=== PATIENT | male | born 1960 | race Caucasian/White ===

== ENCOUNTER 2018-09-21 10:32 | Emergency (ER) | payer OTHER ==
[~2018-09-21] VITALS: Ht 175.3 cm; Wt 86.2 kg
[2018-09-21] MEDS ORDERED: METFORMIN HCL1000 M1 ORAL (10:41)
[2018-09-21] MEDS ORDERED: Vancomycin 1 GM in NS 275 ML IV ONE (11:00)
[2018-09-21] MEDS ORDERED: EMLA 5gm tube TOPIC ONE ×2 (11:00)
[2018-09-21] MEDS ORDERED: Lidocaine 1% Plain 30 ml INJ ONE (11:00)
--- NOTE | 2018-09-21 11:03 | Emergency Room Report ---
History of Present Illness General Chief Complaint: Skin Rash/Abscess Source: Patient Present Illness HPI This patient states that he was traveling from the [facility] about one week ago. He states the day after he arrived here in [place] he felt pain in his posterior left thigh. He states that he eventually identified that there was a large "pimple." He states that over the past week he has tried warm compresses but the area is enlarging and becoming more painful. He denies fever or chills. He denies nausea or vomiting. He states that the area is very tender. He has had some other lesions in the past, but not this large. He has no other complaints. Allergies: Coded Allergies: No Known Allergies (Unverified , 09/21/18) Patient History Past Medical History: see triage record, DM, GERD Social History: Denies: smoking, alcohol use, drug use Reviewed Nursing Documentation: PMH: Agreed; PSxH: Agreed Nursing Documentation-PMH Past Medical History: No History, Except For Hx Diabetes: Yes Hx Gastrointestinal Problems: Yes - GERD Review of Systems All Other Systems: negative except mentioned in HPI Physical Exam Vital Signs Date Time Temp Pulse Resp B/P (MAP) Pulse Ox O2 Delivery O2 Flow Rate FiO2 09/21/18 10:38 98.2 78 18 125/78 97 Room Air Sp02 EP Interpretation: reviewed, normal General Appearance: no apparent distress, alert, GCS 15, non-toxic Head: normocephalic, atraumatic Eyes: bilateral eye normal inspection, bilateral eye PERRL ENT: hearing grossly normal, normal pharynx, no angioedema, normal voice Neck: full range of motion, supple/symm/no masses Respiratory: chest non-tender, lungs clear, normal breath sounds, no respiratory distress, no retraction, no accessory muscle use, speaking full sentences Cardiovascular #1: regular rate, rhythm, no edema Gastrointestinal: normal bowel sounds, non tender, soft, non-distended, no guarding, no rebound Rectal: deferred Musculoskeletal: back normal, gait/station normal, normal range of motion, non- tender Neurologic: alert, oriented x3, responsive, motor strength/tone normal, sensory intact, speech normal Psychiatric: judgement/insight normal, memory normal, mood/affect normal, no suicidal/homicidal ideation Skin: warm/dry, well hydrated, other - L. Posterior and medial thigh just distal to the gluteal crease: [id number] area of erythema and induration with peripherally surrounding erythema. exquisitely TTP. Procedures Incision and Drainage Incision and Drainage : Consent: Verbal Site: L. Posterior thigh Blade Size: 11 I & D Procedure: betadine prep, sterile drapes applied, gauze wick placed Wound Location: lower extremity Wound's Depth, Shape: superficial Wound Length (cm): 2 Irrigated w/ Saline (ccs): 100 Anesthesia: 1% Lidocaine Volume Anesthetic (ccs): 7 Patient Tolerated: Well Complications: None Medical Decision Making Diagnostic Impression: Primary Impression: Cellulitis Additional Impression: Abscess ER Course This patient has an abscess with surrounding cellulitis. I did do an incision and drainage. See my procedure note. I was able to open the abscess and did express purulent discharge. Overall, the patient is nontoxic without systemic symptoms or fever. I did educate the patient on the signs and symptoms of systemic infection. He was given a dose of IV vancomycin and I'll place the patient on doxycycline to cover for MRSA. The patient is also instructed to obtain Hibiclens from the local pharmacy and use this with showers. The patient is given close return precautions and follow-up instructions. Laboratory Tests Test 09/21/18 11:00 White Blood Count 11.1 K/UL (4.8-10.8) H Red Blood Count 5.12 M/UL (4.70-6.10) Hemoglobin 14.9 G/DL (14.2-18.0) Hematocrit 44.0 % (42.0-52.0) Mean Corpuscular Volume 86 FL (80-99) Mean Corpuscular Hemoglobin 29.1 PG (27.0-31.0) Mean Corpuscular Hemoglobin Concent 33.9 G/DL (32.0-36.0) Red Cell Distribution Width 12.4 % (11.6-14.8) Platelet Count 292 K/UL (150-450) Mean Platelet Volume 6.0 FL (6.5-10.1) L Neutrophils (%) (Auto) 70.7 % (45.0-75.0) Lymphocytes (%) (Auto) 19.3 % (20.0-45.0) L Monocytes (%) (Auto) 7.3 % (1.0-10.0) Eosinophils (%) (Auto) 1.9 % (0.0-3.0) Basophils (%) (Auto) 0.8 % (0.0-2.0) Sodium Level 140 MMOL/L (136-145) Potassium Level 4.4 MMOL/L (3.5-5.1) Chloride Level 103 MMOL/L (98-107) Carbon Dioxide Level 28 MMOL/L (21-32) Anion Gap 9 mmol/L (5-15) Blood Urea Nitrogen 28 mg/dL (7-18) H Creatinine 1.0 MG/DL (0.55-1.30) Estimate Glomerular Filtration Rate > 60 mL/min (>60) Glucose Level 132 MG/DL (74-106) H Lactic Acid Level 1.80 mmol/L (0.4-2.0) Calcium Level 9.4 MG/DL (8.5-10.1) Total Bilirubin 0.3 MG/DL (0.2-1.0) Aspartate Amino Transferase (AST) 15 U/L (15-37) Alanine Aminotransferase (ALT) 21 U/L (12-78) Alkaline Phosphatase 69 U/L (46-116) Total Protein 8.4 G/DL (6.4-8.2) H Albumin 4.3 G/DL (3.4-5.0) Globulin 4.1 g/dL Albumin/Globulin Ratio 1.0 (1.0-2.7) Last Vital Signs Date Time Temp Pulse Resp B/P (MAP) Pulse Ox O2 Delivery O2 Flow Rate FiO2 09/21/18 10:38 98.2 78 18 125/78 97 Room Air Status: improved Disposition: HOME, SELF-CARE Condition: Improved Patient Instructions: Calli Lgiht DO Sep 21, 2018 11:03
[2018-09-21 11:27] VITALS: BP 125/78
--- NOTE | 2018-09-21 11:28 | NUR ---
ED Nurse Note:pt. came with left thigh abscess for 1 week, topical lidocane was applied and IV meds and fluids given, blood and cultures sent to labs, pt. c/o pain MD notified
[2018-09-21 11:33] LABS: BASOPHILS % (AUTO) 0.8 % (0.0-2.0); EOSINOPHILS % (AUTO) 1.9 % (0.0-3.0); HEMOGLOBIN 14.9 G/DL (14.2-18.0); LYMPHOCYTES % (AUTO) 19.3 % (20.0-45.0); MEAN CORPUSCULAR VOLUME 86 FL (80-99); MONOCYTES % (AUTO) 7.3 % (1.0-10.0); NEUTROPHILS % (AUTO) 70.7 % (45.0-75.0); PLATELET COUNT 292 K/UL (150-450); RED BLOOD COUNT 5.12 M/UL (4.70-6.10); RED CELL DISTRIBUTION WIDTH 12.4 % (11.6-14.8); WHITE BLOOD COUNT 11.1 K/UL (4.8-10.8)
[2018-09-21 11:41] LABS: ANION GAP 9 mmol/L (5-15); BLOOD UREA NITROGEN 28 mg/dL (7-18); CALCIUM 9.4 MG/DL (8.5-10.1); CARBON DIOXIDE 28 MMOL/L (21-32); CHLORIDE 103 MMOL/L (98-107); POTASSIUM 4.4 MMOL/L (3.5-5.1); SODIUM 140 MMOL/L (136-145)
[2018-09-21 11:44] LABS: ALANINE AMINOTRANSFERASE 21 U/L (12-78); ALBUMIN 4.3 G/DL (3.4-5.0); ALKALINE PHOSPHATASE 69 U/L (46-116); ASPARTATE AMINO TRANSFERASE 15 U/L (15-37); BILIRUBIN,TOTAL 0.3 MG/DL (0.2-1.0)
--- NOTE | 2018-09-21 12:23 | NUR ---
ED Nurse Note:I&D procedure was done by ER MD and then dry dressing applied
[2018-09-21] MEDS ORDERED: DOXYCYCLINE MO100 MG ORAL (12:25)
[2018-09-21] MEDS ORDERED: ACETAMINOPHEN-1 EAC1 ORAL (12:25)
[2018-09-21] MEDS ORDERED: IBUPROFEN800 MG ORAL (12:25)
[2018-09-21 12:51] VITALS: BP 128/76
[2018-09-21 12:52] VITALS: BP 125/78
--- NOTE | 2018-09-21 12:57 | NUR ---
ER DISCHARGE NOTE: Patient is cleared to be discharged per ERMD, pt is aox4, on room air, with stable vital signs. pt was given dc and prescription instructions, pt was able to verbalize understanding, pt id band and iv site removed without complications. pt is able to ambulate with steady gait. pt took all belongings.
== END 2018-09-21 13:05 | disposition home or self-care (01) ==
LOC: EMR 10:45
DX: L03.116 Cellulitis of left lower limb (principal); L02.416 Cutaneous abscess of left lower limb; E11.9 Type 2 diabetes mellitus without complications; K21.9 Gastro-esophageal reflux disease without esophagitis
CPT/HCPCS: 10060; 36415; 80053; 83605; 85025; 87040; 96365; 99284; J2001; J3370; J7050